=== PATIENT | female | born 1955 | race Caucasian/White ===

== ENCOUNTER 2016-12-18 13:14 | Day surgery (SDC) | payer OTHER ==
[~2016-12-18] VITALS: Ht 170.2 cm; Wt 124.7 kg
[~2016-12-18 13:14] MED LIST: ASPIRIN EC81 MG PO; ATENOLOL25 MG PO; ATORVASTATIN CA10 MG PO; CELEXA20 MG PO; EYE VITAMINS PO; HUMULIN 70/30 SC; LACTULOSE PO; LEVEMIR1000 UNITS SC; LEVOTHYROXIN50 MCG PO; LISINOPRIL10 MG PO; LYRICA50 MG PO; MIRALAX3350 NF PO; NORTRIPTYLIN25 MG PO; NOVOLIN R IJ; OMEPRAZOLE10 MG PO; STOOL SOFTENER100 M1 PO
[2016-12-18 16:11] VITALS: BP 124/56
== END 2016-12-18 16:15 | disposition home or self-care (01) | DRG 392 ==
LOC: ENDO 13:14 → ORM 13:40 → ENDO 16:15 → ORM 16:15
PROVIDERS: ATTEND Internal Medicine Gastroenterology
PROC: 0DBP8ZX Excision of Rectum, Via Natural or Artificial Opening Endoscopic, Diagnostic (ICD-10-PCS; principal; 2016-12-18)
PROC: 0DBL8ZX Excision of Transverse Colon, Via Natural or Artificial Opening Endoscopic, Diagnostic (ICD-10-PCS; 2016-12-18)
PROC: 0DBN8ZX Excision of Sigmoid Colon, Via Natural or Artificial Opening Endoscopic, Diagnostic (ICD-10-PCS; 2016-12-18)
DX: K59.00 Constipation, unspecified (principal); I10 Essential (primary) hypertension; D12.3 Benign neoplasm of transverse colon; D12.5 Benign neoplasm of sigmoid colon; D12.8 Benign neoplasm of rectum; K64.8 Other hemorrhoids; K64.4 Residual hemorrhoidal skin tags; R14.0 Abdominal distension (gaseous); R11.0 Nausea; K21.9 Gastro-esophageal reflux disease without esophagitis; E11.9 Type 2 diabetes mellitus without complications; E78.00 Pure hypercholesterolemia, unspecified; F41.9 Anxiety disorder, unspecified; F32.9 Major depressive disorder, single episode, unspecified; E03.9 Hypothyroidism, unspecified; Z80.0 Family history of malignant neoplasm of digestive organs